=== PATIENT | male | born 1995 | race Caucasian/White ===

== ENCOUNTER 2016-11-08 12:31 | Day surgery (SDC) | payer OTHER ==
[~2016-11-08] VITALS: Ht 175.3 cm; Wt 67.0 kg
[2016-11-08] VITALS (17 sets, daily range): BP systolic 101–133; BP diastolic 57–96; PULSE 59–80; RESP 12–28; Ht 175.3 cm; Wt 67.0 kg
[2016-11-08] MEDS ORDERED: CEFAZOLIN 2 GM/50 ML (PMX) 50 ML IVPB ONE (13:00)
[2016-11-08] MEDS ORDERED: PROPOFOL 20 ML ONE (14:41)
[2016-11-08] MEDS ORDERED: ROCURONIUM 50 MG INJ ONE (14:41)
[2016-11-08] MEDS ORDERED: NEOSTIGMINE 3 MG/3 ML SYRINGE ONE (14:41)
[2016-11-08] MEDS ORDERED: CEFAZOLIN 1 GM INJ ONE (14:41)
[2016-11-08] MEDS ORDERED: GLYCOPYRROLATE 0.4 MG INJ ONE (14:41)
[2016-11-08] MEDS ORDERED: MIDAZOLAM 1 MG/ML 2 ML INJ ONE (14:42)
[2016-11-08] MEDS ORDERED: DEXAMETHASONE 4 MG/ML 1 ML INJ ONE (14:42)
[2016-11-08] MEDS ORDERED: ONDANSETRON 4 MG INJ ONE (14:42)
[2016-11-08] MEDS ORDERED: FENTAnyl 50 MCG/ML VIAL ONE (14:42)
--- NOTE | 2016-11-08 15:37 | HPN ---
Date/Time of Note Date/Time of Note DATE: 11/08/16 TIME: 15:37 Interval H&P Admission Note Pt. seen H&P reviewed: No system changes CYNTHIA CARVAJAL Nov 08, 2016 15:37
[2016-11-08] MEDS ORDERED: POLYMYXIN/BACITRACIN 1L IRRIG ONE (15:40)
[2016-11-08] MEDS ORDERED: BUPIVACAINE 0.5% (SDV) 30 ML INJ ONE (15:54)
[2016-11-08] MEDS ORDERED: DIPHENHYDRAMINE 50 MG INJ IV PRN (16:00)
[2016-11-08] MEDS ORDERED: FENTAnyl 50 MCG/ML VIAL IV PRN ×3 (16:00)
[2016-11-08] MEDS ORDERED: MIDAZOLAM 1 MG/ML 2 ML INJ IV PRN (16:00)
[2016-11-08] MEDS ORDERED: hydrALAzine 20 MG INJ IV PRN (16:00)
[2016-11-08] MEDS ORDERED: TRIMETHOBENZAMIDE 100 MG/ML VIAL IM PRN (16:00)
[2016-11-08] MEDS ORDERED: EPHEDrine SULFATE 50 MG/5 ML SYG IV PRN (16:00)
[2016-11-08] MEDS ORDERED: LABETALOL HCL 20MG INJ IV PRN (16:00)
[2016-11-08] MEDS ORDERED: ONDANSETRON 4 MG INJ IV PRN (16:00)
[2016-11-08] MEDS ORDERED: HYDROmorphONE (0.2 MG/ML) 10ML SYG IV PRN ×3 (16:00)
[2016-11-08] MEDS ORDERED: MEPERIDINE 25 MG INJ IV PRN (16:00)
[2016-11-08] MEDS ORDERED: KETOROLAC 30 MG INJ ONE (16:04)
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
--- NOTE | 2016-11-08 18:53 | RADRPT ---
PROCEDURE: Intraoperative imaging of the left hand with fluoroscopy. CLINICAL INDICATION: Left hand pain. Intraoperative. TECHNIQUE: A single frontal image of the left hand was obtained in the operating room with an imag e intensifier. No radiologist was in attendance. COMPARISON: No prior study is available for comparison. FINDINGS: Images were used by the surgeon for surgical planning. IMPRESSION: 1. Intraoperative imaging of the left hand. RPTAT: QQ .Edward Redmond MD, MD Date Time Electronically viewed and signed by .Edward Redmond MD, MD on 11/08/2016 18:52 .R/
== END 2016-11-08 18:58 | disposition home or self-care (01) ==
LOC: SDS 12:31
PROVIDERS: ATTEND Orthopaedic Surgery Hand Surgery
DX: M79.5 Residual foreign body in soft tissue (principal)
CPT/HCPCS: 20520; 73130; 88300; J0690; J1100; J1885; J2250; J2405; J2710; J3010; Z7512; Z7610